=== PATIENT | female | born 2000 | race Native Hawaiian/Other Pacific Islander ===

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

== ENCOUNTER 2021-05-23 20:42 | Emergency (ER) | payer OTHER ==
[~2021-05-23] VITALS: Ht 170.2 cm; Wt 103.0 kg
[2021-05-23 21:51] VITALS: BP 121/81; TEMP 99
== END 2021-05-23 21:47 | disposition home or self-care (01) ==
LOC: ED 20:42
DX: J06.9 Acute upper respiratory infection, unspecified (principal); R50.9 Fever, unspecified; U07.1 COVID-19; Z98.890 Other specified postprocedural states
CPT/HCPCS: 87635; 87651; 99283; J1100; U0003